=== PATIENT | female | born 1995 | race Caucasian/White ===

== ENCOUNTER 2016-10-22 09:29 | Emergency (ER) | payer OTHER ==
--- NOTE | 2016-10-22 09:35 | UC ---
Skin Complaint HPI - HPI Summary HPI Summary: 21 YEAR OLD FEMALE PRESENTS WITH COMPLAINS OF RASH ON HER LOWER BACK AND ARMS SECONDARY TO SITTING IN AN OLD CHAIR. - History of Current Complaint Time Seen by Provider: 10/22/16 09:34 Stated Complaint: RASH Hx Obtained From: Patient Onset/Duration: Sudden Onset Skin Exposure Onset/Duration: Hours Ago Timing: Constant Onset Severity: Moderate Current Severity: Moderate Pain Scale Used: 0-10 Numeric - 5 - Allergy/Home Medications Allergies/Adverse Reactions: Allergies Allergy/AdvReac Type Severity Reaction Status Date / Time enviornmental allergies Allergy Itching Uncoded 10/22/16 09:53 Home Medications: Home Medications Camphor [Benadryl Anti-Itch Childr 0.45% GEL] 0.45 % EX 10/22/16 [History] Diphenhydramine HCl [Benadryl Allergy 25 MG TAB] 25 mg PO 10/22/16 [History] Norethin Acet & Estrad-Fe [[place] Fe 03/23 1-20 mg-Mcg] 1 tab PO 10/22/16 [ History] Review of Systems Constitutional: Negative Skin: Rash Eyes: Negative ENT: Negative Respiratory: Negative Cardiovascular: Negative Gastrointestinal: Negative Genitourinary: Negative Motor: Negative Neurovascular: Negative Musculoskeletal: Negative Neurological: Negative Psychological: Negative All Other Systems Reviewed And Are Negative: Yes PMH/Surg Hx/FS Hx/Imm Hx Previously Healthy: Yes Physical Exam Triage Information Reviewed: Yes Eye Exam: Normal ENT Exam: Normal Dental Exam: Normal Neck exam: Normal Neck: Positive: 1 Respiratory Exam: Normal Cardiovascular Exam: Normal Abdominal Exam: Normal Musculoskeletal Exam: Normal Neurological Exam: Normal Psychological Exam: Normal Skin: Positive: rashes Course/Dx - Diagnoses Provider Diagnoses: RASH. CONTACT DERMATITIS Discharge - Discharge Plan Condition: Stable Disposition: HOME Prescriptions: LoraTADine TAB(NF) [Claritin 10 MG TAB(NF)] 10 mg PO DAILY #30 tab Methylprednisolone [Medrol Dosepak 4 MG*] 4 mg PO .SEE WILLA INSTRUCTION #21 tab Triamcinolone 0.1% CREAM(NF) [Kenalog Cream 0.1%(NF)] 1 applic TOPICAL ONCE PRN #90 gm PRN Reason: Itching Patient Education Materials: Acute Rash (ED) Referrals: No Primary Care Phys,NOPCP [Primary Care Provider] -
[2016-10-22 09:52] VITALS: BP 109/64
== END 2016-10-22 10:35 | disposition home or self-care (01) ==
LOC: UCEAST 09:29
DX: L25.9 Unspecified contact dermatitis, unspecified cause (principal)
CPT/HCPCS: 99202; G0463